=== PATIENT | female | born 1955 | race Caucasian/White ===

== ENCOUNTER 2023-09-02 08:58 | Emergency (ER) | payer SELFPAY ==
[~2023-09-02] VITALS: Ht 157.5 cm; Wt 65.0 kg
[~2023-09-02 08:58] MED LIST: ALBU2.5V13 IH; PRED10TA PO; [UNRECOGNIZED DRUG - CODE]
[2023-09-02 09:00] VITALS: O2SAT 97
[2023-09-02] MEDS ORDERED: IBUPROFEN 600MG TABLET PO NR (10:14)
[2023-09-02] MEDS ORDERED: IBUP-2029 MT (10:17)
[2023-09-02 11:37] VITALS: BP 130/76; PULSE 79; RESP 20; TEMP 97.6
== END 2023-09-02 11:55 | disposition home or self-care (01) ==
LOC: ER 08:58
DX: S40.012A Contusion of left shoulder, initial encounter (principal); S00.03XA Contusion of scalp, initial encounter; M19.012 Primary osteoarthritis, left shoulder; J45.909 Unspecified asthma, uncomplicated; W19.XXXA Unspecified fall, initial encounter; Y93.89 Activity, other specified; Y92.89 Other specified places as the place of occurrence of the external cause; Y99.9 Unspecified external cause status
CPT/HCPCS: 73030; 99283